=== PATIENT | male | born 1965 | race American Indian/Alaskan Native ===

== ENCOUNTER 2021-11-15 07:24 | Outpatient (CLI) | payer OTHER ==
--- NOTE | 2021-11-15 10:36 | Cat Scan Report ---
CT ABDOMEN AND PELVIS WITHOUT CONTRAST HISTORY: C61 MALIGNANT NEOPLASM OF PROSTATE COMPARISON: None at this facility TECHNIQUE: Axial CT images were obtained through the abdomen and pelvis without IV contrast. Sagittal and coronal reformatted images. All CT scans at this location are performed using CT dose reduction for ALARA by means of automated exposure control. FINDINGS: CT ABDOMEN: Lung Bases: Small left pleural effusion and partial atelectasis or infiltrate in the left lower lobe is present. The right lung base is clear. No pulmonary nodule. Liver: No significant abnormality. Biliary: No significant abnormality. Spleen: No significant abnormality. Unenlarged. Pancreas: No significant abnormality. Adrenals: No significant abnormality. Kidneys: The right kidney and collecting system are unremarkable. There are 3 or 4 calyceal stones in the left kidney ranging from 1 mm-5 mm. There is mild left hydronephrosis but no convincing left ure teral stone is detected. Lymphatics: There is extensive bulky, near coalescent lymphadenopathy in the retrocrural chains, sindy aortic chain, aortocaval chain and bilateral iliac chains. Vasculature: No significant abnormality. Bowel/Peritoneum: No significant abnormality. No free air. No free fluid. CT PELVIS: : The prostate gland is markedly enlarged measuring 6.2 cm in diameter. There is mild trabeculation of the bladder wall. Prostate makes a prominent indention on the bladder base. Osseous Structures: Numerous small sclerotic bony lesions are identified throughout the lower ribs, s pine, pelvis and proximal femurs. Additional Findings: None IMPRESSION: There is extensive bulky retroperitoneal adenopathy and numerous sclerotic bony lesions consistent wi th metastatic disease. Markedly enlarged prostate gland. There is left nephrolithiasis and mild left hydronephrosis but no convincing left ureteral stone. Hyd ronephrosis appears to be secondary to extrinsic compression of the left ureter from adenopathy. Small left pleural effusion and left basilar atelectasis or less likely infiltrate. Signer Name: Jean Sanchez Jr, MD Signed: 11/15/2021 10:32 AM Workstation Name: [id number]
--- NOTE | 2021-11-15 11:34 | Nuclear Medicine Report ---
NUCLEAR MEDICINE WHOLE BODY BONE IMAGING STUDY. HISTORY: C61 MALIGNANT NEOPLASM OF PROSTATE COMPARISON: No prior bone scans are available for comparison. CT abdomen/pelvis earlier today. TECHNIQUE: The patient was administered 26.7 mCi of technetium 99m labeled MDP intravenously. FINDINGS: There is bilateral, relatively symmetric articular activity which is most likely degenerative given t he distribution and symmetry. There are numerous abnormal foci of radiotracer within the proximal femurs, pelvis, spine, ribs, medi al left clavicle, sternum, scapulae, proximal right humerus, and right frontal calvarium. There is normal soft tissue activity in the kidneys and urinary bladder. IMPRESSION: Extensive osseous metastatic disease. Signer Name: Tha Vieira MD Signed: 11/15/2021 11:29 AM Workstation Name: [email or web address]
== END 2021-11-15 07:25 | disposition home or self-care (01) ==
LOC: NM 07:24
PROVIDERS: ATTEND Urology
DX: C61 Malignant neoplasm of prostate (principal); N20.0 Calculus of kidney; N13.30 Unspecified hydronephrosis; J90 Pleural effusion, not elsewhere classified
CPT/HCPCS: 74176; 78306; A9503